=== PATIENT | male | born 1975 | race Two or more races ===

== ENCOUNTER → 2019-12-30 | Outpatient (CLI) | payer OTHER ==
[~2019-12-30] MED LIST: CITA10TA8 PO; GADOTERATE 7.5 MMOL/15ML VIAL. IVP ONE; LISI1TAB23 PO; MIRT7.5T8 PO; OXYB5TAB10 PO; PROP20TA PO; RISP4TAB35 PO; SIMV20TA18 PO
--- NOTE | 2019-12-30 11:15 | KCIC ---
BRAIN WO/W CONTRAST Date: 12/30/2019 8:00 AM Indication: Intracranial cyst status post resection in 2014 Comparison: None. Technique: Multiplanar multisequence MRI of the brain was performed with and without intravenous contrast using the standard protocol. 23 cc Dotarem contrast was administered intravenously during the exam. Findings: Postsurgical changes of right occipital craniotomy with underlying occipital lobe resection cavity. Minimal T2/STIR hyperintense signal along the margins of the resection cavity, likely gliosis. Resection cavity abuts the occipital horn of the right lateral ventricle. No suspicious enhancement. No acute infarct. No acute hemorrhage. The ventricles are normal in size and configuration without hydrocephalus. Empty sella. No Chiari malformation. The visualized upper cervical spine is normal. The visualized orbits and globes are normal. The visualized paranasal sinuses are clear. The mastoid air cells are clear. Normal flow voids within the vertebral, basilar, and internal carotid arteries indicating patency. IMPRESSION: Prior right occipital craniotomy with underlying occipital lobe resection cavity. No suspicious enhancement. Electronically signed by: Paul Waters MD (12/30/2019 11:12 AM) [id number]
== END | disposition home or self-care (01) ==
LOC: KCIC MRI 07:38
DX: Z09 Encounter for follow-up examination after completed treatment for conditions other than malignant neoplasm (principal); Z98.890 Other specified postprocedural states
CPT/HCPCS: 70553; A9575